=== PATIENT | female | born 1985 | race Hispanic/Latino ===

== ENCOUNTER 2018-01-14 13:14 | Outpatient (CLI) | payer MEDICAID ==
[2018-01-14] MEDS ORDERED: TYLENOL PO ONE (14:22)
[2018-01-14 14:23] LABS: Bacteria,Urine 4+ /HPF (Negative); Bilirubin,Urine NEG (Negative); Blood,Urine NEG (Negative); Color,Urine Yellow (Yellow); Mucus,Urine FEW /HPF; Protein,Urine <15 mg/dL mg/dL (Negative); Urobilinogen,Urine < 2.0 mg/dL (<2.0)
[2018-01-14 14:24] LABS: Hematocrit 31.4 % (30.3-42.9); Hemoglobin 10.5 gm/dl (10.1-14.3); Mean Corpuscular HGB Conc 33 % (30-34); Mean Corpuscular Hemoglobin 31 pg (28-32); Mean Corpuscular Volume 93 fl (79-97); Platelet Count 310 K/mm3 (140-440); Red Blood Count 3.38 M/mm3 (3.65-5.03); Red Cell Distribution Width 12.8 % (13.2-15.2)
[2018-01-14 14:41] LABS: Alanine Aminotransferase 6 units/L (7-56)
[2018-01-14 14:57] LABS: Uric Acid 5.1 mg/dL (3.5-7.6)
[2018-01-14 15:18] VITALS: BP 118/71
== END 2018-01-14 15:35 | disposition home or self-care (01) ==
LOC: TRG 13:14
PROVIDERS: ATTEND Obstetrics & Gynecology
DX: O47.1 False labor at or after 37 completed weeks of gestation (principal); Z3A.37 37 weeks gestation of pregnancy
CPT/HCPCS: 36415; 59025; 81001; 82565; 83615; 84450; 84460; 84550; 85027

== ENCOUNTER 2018-01-30 10:06 | Inpatient (IN) | payer MEDICAID ==
[2018-01-30] MEDS ORDERED: MINERAL OIL PO PRN (14:03)
[2018-01-30] MEDS ORDERED: STADOL IV PRN (14:03)
[2018-01-30] MEDS ORDERED: BRETHINE IVP PRN (14:03)
[2018-01-30] MEDS ORDERED: BRETHINE SUB-Q PRN (14:03)
[2018-01-30] MEDS ORDERED: SUBLIMAZE IV PRN (14:03)
[2018-01-30] MEDS ORDERED: XYLOCAINE 2% INFILTRATI ONE (14:03)
[2018-01-30] MEDS ORDERED: CERVIDIL VG ONE (14:03)
[2018-01-30] MEDS ORDERED: ePHEDrine SULFATE IV PRN ×2 (14:03→22:08)
--- NOTE | 2018-01-30 14:03 | History and Physical Report ---
History of Present Illness Date of examination: 01/30/18 Date of admission: 01/30/18 10:06 Chief complaint: IOL History of present illness: 32yo G 3 P 2 0 0 2 here for scheduled induction of labor secondary to obesity. She c/o back pain and reports positive movements. She denies UCs, VB, LOF or recent herpes outbreak. Her course was complicated by obesity, h/o genital herpes (on suppressive therapy) and vit D deficiency (on supplementation ). She is GBS negative. Past History Past Medical History: hypertension [employer]OUNT SUPPORT MANAGER History: abnormal PAP smear (+HPV), herpes, trichomonas Family/Genetic History: hypertension (father) - Obstetrical History Expected Date of Delivery: 02/04/18 Actual Gestation: 39 Week(s) 2 Day(s) : 3 Para: 2 Hx # Term Pregnancies: 2 Number of Pregnancies: 0 Spontaneous Abortions: 0 Induced : 0 Number of Living Children: 2 #1 Gender: Female year: 2,011 (07/06/2011) Birthweight: 3.345 kg (7lbs 6 oz) Method of Delivery: Vaginal Gestational age at delivery: 40 Complications: none #2 Infant Gender: Female year: 2,[birth year] (04/15/2016) Birthweight: 2.863 kg (6 lbs 5 oz) Method of Delivery: Vaginal Complications: none Medications and Allergies Allergies Allergy/AdvReac Type Severity Reaction Status Date / Time No Known Allergies Allergy Verified 03/24/14 06:29 Home Medications Medication Instructions Recorded Confirmed Last Taken Type No Known Home Medications [No 04/14/16 04/14/16 Unknown History Reported Home Medications] Review of Systems All systems: negative - Vital Signs Vital signs: Vital Signs Pulse BP 80 120/79 01/30/18 10:35 01/30/18 10:35 Temp Pulse Resp BP Pulse Ox 97.3 F L 93 H 18 120/79 100 01/30/18 11:12 01/30/18 13:55 01/30/18 11:12 01/30/18 11:12 01/30/18 13:55 - Physical Exam Cardiovascular: Regular rate, Normal S1, Normal S2, No murmurs Lungs: Positive: Clear to auscultation, Normal air movement Abdomen: Positive: soft Genitourinary (Female): Positive: normal external genitalia. Negative: perineal /vulvar lesions Vulva: both: normal Vagina: Positive: normal moisture Uterus: Positive: normal size, normal contour Anus/Rectum: Positive: normal perianal skin Extremities: Positive: normal Deep Tendon Reflex Grade: Normal +2 - Obstetrical FHR: category 1 FHR comments: baseline 140, moderate variability, 15X15 accels, no decels Uterine Contraction Monitor Mode: External Cervical Dilatation: 2 Cervical Effacement Percentage: 50 station: -3 Uterine Contraction Pattern: Irregular Results Result Diagrams: 01/30/18 16:17 All other labs normal. Assessment and Plan - Patient Problems (1) 39 weeks gestation of Current Visit: Yes Status: Acute (2) Encounter for induction of labor Current Visit: Yes Status: Acute Plan to address problem: Admit to L&D with routine labor orders Insert cervidil for cervical ripening Anticipate vaginal delivery (3) Obesity complicating in third trimester Current Visit: Yes Status: Acute
[2018-01-30] MEDS ORDERED: PITOCin/NS 20 UNIT/1000ML DRIP 20 UNITS/1,000 ML BAG IV SCH (15:00)
[2018-01-30] MEDS ORDERED: LACTATED RINGERS 1,000 ML IV SCH (15:00)
[2018-01-30 16:21] LABS: Hematocrit 37.5 % (30.3-42.9); Hemoglobin 12.3 gm/dl (10.1-14.3); Mean Corpuscular HGB Conc 33 % (30-34); Mean Corpuscular Hemoglobin 31 pg (28-32); Mean Corpuscular Volume 93 fl (79-97); Platelet Count 378 K/mm3 (140-440); Red Blood Count 4.03 M/mm3 (3.65-5.03); Red Cell Distribution Width 12.9 % (13.2-15.2)
[2018-01-30] MEDS ORDERED: PITOCin/NS 30 UNIT/500ML 30 UNITS/500 ML BAG IV SCH (18:00)
--- NOTE | 2018-01-30 18:09 | Event Note ---
Date: 01/30/18 S: Patient resting in bed in upright position with partner at bedside. She c/o back pain but tolerable. She denies VB or LOF. O: FHR baseline 140, moderate variability, 15x15 accels, no decels CTXS: irregular, palpate mild SVE 2.5/50/-2/intact Cook Balloon inserted without any difficulties but membranes ruptured during uterine balloon inflation A: 32yo G 3 P 2 0 0 2 @ 39 weeks 2 days Category I FHR No active labor AROM @ 17:40 P: Cervidil order discontinued (not inserted) Will start Oxytocin for labor augmentation Anticipate vaginal delivery
[2018-01-30] MEDS ORDERED: NARCAN 2 MG/2 ML IV PRN (22:08)
--- NOTE | 2018-01-30 22:08 | Anesthesia Consultation ---
Anesthesia Consult and Med Hx Date of service: 01/30/18 - Airway Anesthetic Teeth Evaluation: Good ROM Head & Neck: Adequate Mental/Hyoid Distance: Adequate Mallampati Class: Class II Intubation Access Assessment: Good - Pulmonary Exam CTA: Yes - Cardiac Exam Cardiac Exam: No Murmur - Pre-Operative Health Status ASA Pre-Surgery Classification: ASA2 Proposed Anesthetic Plan: Epidural - Pulmonary Hx Asthma: No COPD: No Hx Pneumonia: No - Cardiovascular System Hx Hypertension: No Hx Coronary Artery Disease: No Hx Heart Attack/AMI: No Hx Angina: No Hx Cardia Arrhythmia: No Hx Heart Murmur: No - Central Nervous System Hx Seizures: No Hx Psychiatric Problems: No - Endocrine Hx Renal Disease: No Hx End Stage Renal Disease: No Hx Hypothyroidism: No Hx Hyperthyroidism: No - Hematic Hx Anemia: Yes Hx Sickle Cell Disease: No - Other Systems Hx Alcohol Use: No
[2018-01-30] MEDS: fentaNYL-BUPIV 2 MCG/ML-0.125% 200 MCG/100 ML BAG EPIDURAL SCH (23:12)
[2018-01-31] MEDS ORDERED: XYLOCAINE 2% INFILTRATI ONE (01:10)
[2018-01-31] MEDS ORDERED: ZOFRAN IV PRN ×2 (03:00→09:24)
[2018-01-31] MEDS: fentaNYL-BUPIV 2 MCG/ML-0.125% 200 MCG/100 ML BAG EPIDURAL SCH ×2 (07:14→07:25)
[2018-01-31] MEDS ORDERED: XYLOCAINE MPF 2% ONE (07:23)
--- NOTE | 2018-01-31 09:17 | Procedure Note ---
OB Delivery Note - Delivery Date of Delivery: 01/31/18 (08:54) Surgeon: SHARON WATT (DYAN) Estimated blood loss: 200cc - Vaginal Delivery presentation: vertex Delivery position: OA Intrapartum events: mult.variable deceleratio Delivery induction: oxytocin Delivery augmentation: rupture of membranes (AROM 01/30/18 @ 17:50), pitocin Delivery monitor: external FHT, external uterine Route of delivery: Delivery placenta: spontaneous (09:00) Delivery cord: nuchal cord (x2; reduced after delivery), 3 umbilical vessels Episiotomy: none Delivery laceration: none Anesthesia: epidural Delivery comments: of a vigorous term 7 lbs 5 oz female at 08:54. Nuchal cord reduced, baby bulb-suctioned and placed [id number] on maternal abdomen. After 3 mins, umbilical cord double-clamped by DYAN Watt and cut by FOB. Spontanoeus delivery of placenta, Alejandro-side presenting at 09:00. Small lochia noted. Fundal massage and IV pitocin bolus initiated. Fundus F/ML/U-2. Placenta intact ; was discarded. Perineum intact. No laceration. Mom and baby in stable condition. - A at 1 minute: 9 at 5 minutes: 9 Infant Gender: Female (7 lbs 5 OZ (3316 gm); 20 in)
[2018-01-31] MEDS ORDERED: TYLENOL PO PRN (09:24)
[2018-01-31] MEDS ORDERED: BENADRYL PO PRN (09:24)
[2018-01-31] MEDS ORDERED: DULCOLAX PR PRN (09:24)
[2018-01-31] MEDS ORDERED: PHENERGAN PR PRN (09:24)
[2018-01-31] MEDS ORDERED: LANSINOH TP PRN (09:24)
[2018-01-31] MEDS ORDERED: TUCKS PAD TP PRN (09:24)
[2018-01-31] MEDS ORDERED: MILK OF MAGNESIA PO PRN (09:24)
[2018-01-31] MEDS ORDERED: PHENERGAN PO PRN (09:24)
[2018-01-31] MEDS ORDERED: PRENATAL VITAMIN PO SCH (10:00)
[2018-01-31] MEDS ORDERED: SODIUM CHLORIDE FLUSH SYRINGE 10 ML IV NR (10:00)
[2018-01-31] MEDS: NORCO 5/325 PO PRN ×2 (11:50→19:45)
[2018-01-31] MEDS: MOTRIN PO SCH ×3 (11:51→22:00)
[2018-01-31 21:10] LABS: Hematocrit 32.3 % (30.3-42.9); Hemoglobin 10.6 gm/dl (10.1-14.3)
[2018-02-01] MEDS: MOTRIN PO SCH ×2 (01:13→13:59)
--- NOTE | 2018-02-01 08:54 | Progress Note ---
Assessment and Plan A: PPD #1 -stable P; Discharge home today Subjective - Subjective Date of service: 02/01/18 Principal diagnosis: Patient reports: appetite normal : doing well Objective - Vital Signs Latest vital signs: Vital Signs Temp Pulse Resp BP BP Pulse Ox 02/01/18 00:00 98.1 F 71 121/71 01/31/18 21:10 98.9 F 67 18 113/78 01/31/18 15:56 97.9 F 73 18 117/63 98 01/31/18 11:10 98.3 F 56 L 18 126/65 96 01/31/18 11:00 98.0 F 18 01/31/18 10:38 70 143/80 01/31/18 10:34 80 141/88 01/31/18 09:23 71 147/78 01/31/18 09:21 79 160/79 01/31/18 09:09 80 143/109 01/31/18 08:55 94 H 138/95 Intake and Output 01/31/18 02/01/18 02/01/18 22:59 06:59 14:59 Intake Total 840 264 Output Total 600 400 Balance 240 -136 Intake: Oral 240 Intake, Free Water 600 264 Output: Urine 600 400 Void 600 400 Other: Total, Intake Amount 240 Total, Output Amount 600 400 # Voids Void 2 Estimated Blood Loss 200 - Exam Breasts: Present: deferred Cardiovascular: Present: Regular rate Lungs: Present: Clear to auscultation Abdomen: Present: soft Vulva: both: normal Uterus: Present: fundal height below umbilicus Extremities: Present: normal Deep Tendon Reflex Grade: Normal +2
--- NOTE | 2018-02-01 08:55 | Discharge Summary ---
Providers - Providers Date of Admission: 01/30/18 10:06 Date of discharge: 02/01/18 Attending physician: ANGELINA BNOE MD Primary care physician: ANGELINA BONE MD Hospitalization Reason for admission: induction of labor Delivery: Episiotomy: none Laceration: none Other procedures: none complications: none Discharge diagnosis: IUP at term delivered [place] baby: female Condition at discharge: Good Disposition: DC-01 TO HOME OR SELFCARE Plan - Provider Discharge Summary Activity: routine, no sex for 6 weeks, no strenuous exercise Diet: routine Instructions: routine Additional instructions: [] Smoking cessation referral if applicable(refer to patient education folder for contact #) [] Refer to [facility]'s [facility] Booklet Call your doctor immediately for: * Fever > 100.5 * Heavy vaginal bleeding ( >1 pad per hour) * Severe persistent headache * Shortness of breath * Reddened, hot, painful area to leg or breast * Drainage or odor from incision. * Keep incision clean and dry at all times and follow doctor's instructions regarding bathing/showering - Follow up plan Follow up: ANGELINA BONE MD [Primary Care Provider] - 6 Weeks
[2018-02-01 14:45] VITALS: BP 129/75
== END 2018-02-01 15:40 | disposition home or self-care (01) | DRG 774 ==
LOC: LD 10:06 → OB 01-31 11:38
PROVIDERS: ADMIT Obstetrics & Gynecology; ATTEND Obstetrics & Gynecology
PROC: 10E0XZZ Delivery of Products of Conception, External Approach (ICD-10-PCS; principal; 2018-01-31)
PROC: 3E033VJ Introduction of Other Hormone into Peripheral Vein, Percutaneous Approach (ICD-10-PCS; 2018-01-31)
PROC: 10907ZC Drainage of Amniotic Fluid, Therapeutic from Products of Conception, Via Natural or Artificial Opening (ICD-10-PCS; 2018-01-31)
PROC: 3E0R3BZ Introduction of Anesthetic Agent into Spinal Canal, Percutaneous Approach (ICD-10-PCS; 2018-01-31)
PROC: 00HU33Z Insertion of Infusion Device into Spinal Canal, Percutaneous Approach (ICD-10-PCS; 2018-01-31)
DX: O99.214 Obesity complicating childbirth (principal); O16.4 Unspecified maternal hypertension, complicating childbirth; O76 Abnormality in fetal heart rate and rhythm complicating labor and delivery; E66.9 Obesity, unspecified; Z68.36 Body mass index [BMI] 36.0-36.9, adult; O69.81X0 Labor and delivery complicated by cord around neck, without compression, not applicable or unspecified; Z3A.39 39 weeks gestation of pregnancy; Z37.0 Single live birth; O98.32 Other infections with a predominantly sexual mode of transmission complicating childbirth; A60.00 Herpesviral infection of urogenital system, unspecified
CPT/HCPCS: 36415; 85014; 85018; 85027; 86592; 86850; 86900; 86901; 99211; A6250; G0463; J2405; J2590; J7120